=== PATIENT | female | born 1945 | race Caucasian/White ===

== ENCOUNTER 2018-07-16 05:32 | Observation (INO) | payer MEDICARE ==
[~2018-07-16] VITALS: Ht 157.5 cm; Wt 78.9 kg
[2018-07-16] MEDS ORDERED: MORPHINE SULFATE 4 MG/ML, 1ML IVPush PRN (06:30)
[2018-07-16 06:31] LABS: BASOPHILS # (AUTO) 0.01 x10^3/uL (0-0.1); BASOPHILS % (AUTO) 0 % (0-1); EOSINOPHILS # (AUTO) 0.09 x10^3/uL (0-0.4); EOSINOPHILS % (AUTO) 2 % (1-7); LYMPHOCYTES # (AUTO) 1.29 x10^3/uL (1-3.4); LYMPHOCYTES % (AUTO) 27 % (22-44); MD NO; MEAN CORPUSCULAR HGB CONC 33.2 g/dL (32.4-35.8); MEAN CORPUSCULAR VOLUME 84.3 fL (80-100); MEAN PLATELET VOLUME 8.3 fL (7.4-10.4); MONOCYTES # (AUTO) 0.37 x10^3/uL (0.2-0.8); MONOCYTES % (AUTO) 8 % (2-9); NEUTROPHILS # (AUTO) 2.97 x10^3/uL (1.8-6.8); NEUTROPHILS % (AUTO) 63 % (42-75); PLATELET COUNT 189 x10^3/uL (130-400); RED CELL DISTRIBUTION WIDTH 14.6 % (9.6-15.2)
[2018-07-16 06:37] LABS: ALBUMIN 3.6 g/dL (3.4-5.0); ANION GAP 5 mmol/L (5-15); CALCIUM 8.6 mg/dL (8.5-10.1); CHLORIDE 110 mmol/L (98-107)
[2018-07-16 06:43] LABS: ALANINE AMINOTRANSFERASE 41 U/L (12-78); ALKALINE PHOSPHATASE 90 U/L (45-117); BILIRUBIN,TOTAL 0.5 mg/dL (0.2-1.0); TOTAL PROTEIN 6.9 g/dL (6.4-8.2); TROPONIN I < 0.015 ng/mL (0.000-0.045)
[2018-07-16 07:30] VITALS: BP 136/58
[2018-07-16] MEDS ORDERED: ENAL20TA PO (07:35)
[2018-07-16] MEDS ORDERED: SIMV40TA3 PO (07:35)
[2018-07-16] MEDS ORDERED: EZET10TA18 PO (07:35)
[2018-07-16] MEDS ORDERED: SODIUM CHLORIDE 0.9% 1,000 ML IV SCH (07:45)
[2018-07-16] MEDS ORDERED: ONDANSETRON 2MG/ML, 2ML IVPush PRN (08:00)
[2018-07-16] MEDS ORDERED: ACETAMINOPHEN 325 MG TABLET PO PRN (08:00)
[2018-07-16] MEDS ORDERED: morphine SULFATE 10 MG/ML, 1ML IVPush PRN (08:00)
[2018-07-16] MEDS ORDERED: ENOXAPARIN 40 MG/0.4 ML SQ SCH (08:00)
[2018-07-16] MEDS ORDERED: IBUPROFEN 600 MG TABLET PO PRN (08:00)
[2018-07-16] MEDS ORDERED: ONDANSETRON ODT 4 MG PO PRN (08:00)
[2018-07-16] MEDS ORDERED: LIDODERM 5% PATCH TD PRN (08:00)
[2018-07-16] MEDS ORDERED: KETOROLAC 30 MG/1 ML IV PRN ×2 (08:00→08:14)
[2018-07-16 10:11] LABS: TROPONIN I 0.023 ng/mL (0.000-0.045)
[2018-07-16] MEDS ORDERED: ASPI-621 PO (14:25)
[2018-07-16] MEDS ORDERED: IBUP-1623 PO (14:25)
[2018-07-16] MEDS ORDERED: SIMVASTATIN 40 MG TABLET PO SCH (21:00)
[2018-07-17] MEDS ORDERED: ASPIRIN 81 MG TABLET EC PO SCH (06:00)
[2018-07-17] MEDS ORDERED: EZETIMIBE 10 MG TABLET PO SCH (09:00)
[2018-07-17] MEDS ORDERED: ENALAPRIL 20MG TABLET PO SCH (09:00)
== END 2018-07-16 15:11 | disposition home or self-care (01) ==
LOC: ED 06:19 → INTOOBSV 07:16 → EDIP 07:16 → 5SO 08:12 → DCLOUNGE 14:40
PROVIDERS: ADMIT Hospitalist; ATTEND Hospitalist
DX: R07.89 Other chest pain (principal); E11.9 Type 2 diabetes mellitus without complications; E78.5 Hyperlipidemia, unspecified; I11.0 Hypertensive heart disease with heart failure; I50.9 Heart failure, unspecified; K58.9 Irritable bowel syndrome, unspecified; Z82.0 Family history of epilepsy and other diseases of the nervous system; Z82.49 Family history of ischemic heart disease and other diseases of the circulatory system; Z85.038 Personal history of other malignant neoplasm of large intestine; Z90.710 Acquired absence of both cervix and uterus
CPT/HCPCS: 36415; 71046; 78452; 80053; 83690; 83735; 84484; 85025; 85379; 93005; 93017; 93306; 99285; A9502; C9898; G0378; J7030